=== PATIENT | female | born 1995 | race Caucasian/White ===

== ENCOUNTER 2023-12-24 01:11 | Emergency (ER) | payer SELFPAY ==
[~2023-12-24] VITALS: Ht 157.5 cm; Wt 64.7 kg
[2023-12-24 01:18] VITALS: O2SAT 100
[2023-12-24 01:23] VITALS: BP 147/97; PULSE 95; RESP 17; TEMP 37.05852; O2SAT 100
[2023-12-24] MEDS ORDERED: CLIN-194 MT (01:46)
[2023-12-24] MEDS ORDERED: KETOROLAC 15MG/ML VIAL IM ONE (02:30)
[2023-12-24] MEDS: KETOROLAC 15MG/ML VIAL IM NR (02:58)
== END 2023-12-24 03:18 | disposition home or self-care (01) ==
LOC: ER 01:20
DX: K04.7 Periapical abscess without sinus (principal); Z88.0 Allergy status to penicillin
CPT/HCPCS: 99283; 81025; 96372; J1885